=== PATIENT | female | born 1935 | race Caucasian/White ===

== ENCOUNTER 2019-04-22 08:41 | Inpatient (IN) | payer MEDICARE, OTHER ==
[~2019-04-22] VITALS: Ht 160 cm; Wt 70.3 kg
[2019-04-22 08:48] VITALS: BP 156/66
[2019-04-22] MEDS ORDERED: MICROZIDE12.5 MG PO (08:55)
[2019-04-22] MEDS ORDERED: CARVEDILOL6.25 M1 PO (08:56)
[2019-04-22] MEDS ORDERED: CRESTOR20 MG PO (08:57)
[2019-04-22] MEDS ORDERED: [UNRECOGNIZED DRUG - OTHER] (08:57)
[2019-04-22 09:21] LABS: INFLUENZA A ANTIGEN Negative (Negative)
[2019-04-22 09:28] LABS: ABSOLUTE EOSINOPHILS 0.1 thou/uL (0.0-0.7); ABSOLUTE LYMPHOCYTES 0.7 thou/uL (0.8-5.3); ABSOLUTE MONOCYTES 0.8 thou/uL (0.0-1.2); BASOPHILS 0.4 %; EOSINOPHILS 0.8 %; HEMATOCRIT 31.9 % (37.0-47.0); HEMOGLOBIN 11.4 gm/dL (12.0-15.0); LYMPHOCYTES 8.6 %; MCH 31.7 pg (26.0-34.0); MCHC 35.6 g/dL (28.0-37.0); MONOCYTES 10.8 %; MPV 7.1 fl. (7.2-11.1); NUCLEATED RBCS 0 /100WBC; PLATELET COUNT* 279 thou/uL (150-400); POLYS 79.4 %; RBC 3.59 mil/uL (4.20-5.00); RDW-CV 12.4 % (10.5-14.5); WBC 7.6 thou/uL (4.0-11.0)
[2019-04-22 09:42] LABS: APTT 36.2 Seconds (25.0-31.3); INR 1.1; PROTIME 10.9 Seconds (9.20-11.50)
[2019-04-22 09:48] LABS: CALCIUM 9.1 mg/dL (8.5-10.1); POTASSIUM 3.7 mmol/L (3.5-5.1)
[2019-04-22 09:52] LABS: ALBUMIN 3.3 g/dL (3.4-5.0); TOTAL BILIRUBIN 0.6 mg/dL (<0.1-1.0); TOTAL PROTEIN 7.9 g/dL (6.4-8.2)
[2019-04-22] MEDS ORDERED: ARIMIDEX1 MG PO (10:29)
[2019-04-22] MEDS ORDERED: FENOFIBRATE150 MG PO (10:29)
[2019-04-22] MEDS ORDERED: NORVASC 2.5 MG2.5 M1 PO (10:29)
[2019-04-22] MEDS ORDERED: VITAMIN B-121000 MC2 SUBLING (10:30)
[2019-04-22] MEDS ORDERED: OSTERA TABLET1 EAC1 PO (10:30)
[2019-04-22] MEDS ORDERED: VITAMIN E1000 UNIT PO (10:30)
[2019-04-22] MEDS ORDERED: OCUVITE ADULT1 EAC1 PO (10:30)
[2019-04-22 10:41] LABS: URINE BILIRUBIN NEGATIVE (Negative); URINE BLOOD TRACE (Negative); URINE CLARITY CLEAR; URINE COLOR YELLOW; URINE GLUCOSE-RANDOM NEGATIVE (Negative); URINE KETONES NEGATIVE (Negative); URINE LEUKOCYTES-REFLEX TRACE (Negative); URINE NITRITE-REFLEX NEGATIVE (Negative); URINE PROTEIN 1+ (Negative); URINE SPECIFIC GRAVITY 1.025 (1.005-1.030)
[2019-04-22 10:55] VITALS: BP 142/41
[2019-04-22 10:57] LABS: MUCUS 0-3 Light strn/LPF (None Seen)
[2019-04-22 10:58] LABS: CASTS None Seen /LPF (None Seen); CRYSTALS None Seen /LPF (None Seen)
[2019-04-22 10:59] LABS: URINE WBC-REFLEX 0-5 Rare /HPF (0-5)
[2019-04-22 11:00] LABS: BACTERIA-REFLEX 1-9 Few /HPF (None Seen)
[2019-04-22 11:02] LABS: SQUAMOUS 0-3 Few /LPF (0-3); URINE RBC 0-2 Rare /HPF (0-2)
[2019-04-22 11:29] VITALS: BP 121/56
--- NOTE | 2019-04-22 14:09 | NUR ---
ARRIVED TO UNIT ALERT AND ORIENTED X4. ISOLATION DROPLETT PRECAUTIONS IN PLACE. DENIES PAIN AT THIS TIME. HAS PRODUCTIVE COUGH. IVF AND IV ANTIBIODIC STARTED. ASSESSMENT CHARTED. PATIENT RESTING QUIETLY IN BED AT THIS TIME. ORIENTED TO ROOM AND CALL LIGHT. CALL LIGHT WITHIN REACH.
[2019-04-22 16:00] VITALS: BP 146/64
--- NOTE | 2019-04-22 18:32 | NUR ---
ALERT AND ORIENTED X4. UP WITH STAND BY ASSIST NEEDED. FLU VACCINE GIVEN. CONTINUES ON TAMIFLU. LAST TEMPATURE 98.5. CONTINUES ON IVF AND IV ANTIBIODICS WITH OUT ADVERSE REACTIONS. HAS PRODUCTIVE COUGH. REMAINS ON DROPLETT ISOLATION PRECAUTIONS AT THIS TIME. NO C/O N/V. CALL LIGHT WITHIN REACH.
[2019-04-22 20:00] VITALS: BP 145/62
[2019-04-23 04:17] LABS: ABSOLUTE EOSINOPHILS 0.1 thou/uL (0.0-0.7); ABSOLUTE LYMPHOCYTES 0.9 thou/uL (0.8-5.3); ABSOLUTE MONOCYTES 0.8 thou/uL (0.0-1.2); ABSOLUTE NEUTROPHILS 7.1 thou/uL (1.6-8.1); BASOPHILS 0.3 %; EOSINOPHILS 0.9 %; HEMATOCRIT 28.3 % (37.0-47.0); LYMPHOCYTES 10.6 %; MCH 31.9 pg (26.0-34.0); MCHC 35.3 g/dL (28.0-37.0); MCV 90.3 fL (80.0-100.0); MONOCYTES 8.5 %; MPV 7.4 fl. (7.2-11.1); NUCLEATED RBCS 0 /100WBC; PLATELET COUNT* 240 thou/uL (150-400); POLYS 79.7 %; RBC 3.13 mil/uL (4.20-5.00); RDW-CV 12.2 % (10.5-14.5); WBC 8.9 thou/uL (4.0-11.0)
[2019-04-23 04:25] LABS: CALCIUM 8.2 mg/dL (8.5-10.1); CREATININE 0.8 mg/dL (0.6-1.3); POTASSIUM 3.8 mmol/L (3.5-5.1)
--- NOTE | 2019-04-23 05:29 | NUR ---
ASSUMED CARES AT 1920. ALERT AND ORIENTED. PLEASANT. HOARSE WHISPER. COUGH. DROPLET ISOLATION. IV RIGHT AC WITH NS @ 100 CC/HR. SLEPT WELL. CALL LIGHT IN REACH.
[2019-04-23 08:19] VITALS: BP 152/71
--- NOTE | 2019-04-23 09:56 | EKG ---
[place] [address] ELECTROCARDIOGRAM REPORT Name: AVERY STORY Room: [address] ADM IN .R.#: [id number] Admission: 04/22/19 Attend Phys: Corwin Schwartz MD Discharge: Date of : 37 Report #: [id number] THIS REPORT FOR: //name// [facility] ED Test Date: 2019-04-22 Test Time: 09:12:50 Pat Name: AVERY STORY Department: Room: [facility] Gender: F Student Counselor: [facility] : 1935 Requested By: Hardeep Simms Order Number: [id number] MD: Javier Ramirez Measurements Intervals [place] Rate: 97 P: 60 NE: 223 QRS: -16 QRSD: 84 T: 55 QT: 339 QTc: 431 Interpretive Statements Sinus rhythm Prolonged NE interval Borderline left axis deviation No previous ECG available for comparison Electronically Signed On 04-23-2019 9:56:26 [employer]AX ACCOUNTING MANAGER by Javier Ramirez [email or web address] <ELECTRONICALLY SIGNED> By: Javier Ramirez MD, [facility] 04/23/19 0956 1 1 Javier Ramirez MD, FACC /EPI
[2019-04-23 16:00] VITALS: BP 153/36
--- NOTE | 2019-04-23 16:24 | NUR ---
ASSUMMED CARE OF PT AT 0730, PT ALERT AND ORIENTED, PT DENIES PAIN, PT AMBULATES TO BATHROOM TO VOID, IV PATENT AND INFUSING IN RIGHT AC, APETITE DECREASED BUT DOES EAT AND DRINK ADEQUATELY, PT HAS COUGH, NO SPUTUM NOTED, DROPLET PRECAUTIONS MAINTAINED, TEMP 100.1 AT 1600, PT REQUESTED TYLENOL GIVEN PER ORDER, ASSESSMENT COMPLETE, HOURLY ROUNDING COMPLETE, WILL CONTINUE TO MONITOR.
[2019-04-23 19:30] VITALS: BP 155/61
[2019-04-24 05:20] LABS: ABSOLUTE BASOPHILS 0.1 thou/uL (0.0-0.2); ABSOLUTE EOSINOPHILS 0.1 thou/uL (0.0-0.7); ABSOLUTE MONOCYTES 0.6 thou/uL (0.0-1.2); ABSOLUTE NEUTROPHILS 9.7 thou/uL (1.6-8.1); BASOPHILS 0.6 %; EOSINOPHILS 0.8 %; HEMATOCRIT 30.1 % (37.0-47.0); HEMOGLOBIN 10.5 gm/dL (12.0-15.0); LYMPHOCYTES 8.4 %; MCH 31.3 pg (26.0-34.0); MCHC 34.9 g/dL (28.0-37.0); MCV 89.8 fL (80.0-100.0); MONOCYTES 5.4 %; MPV 7.5 fl. (7.2-11.1); NUCLEATED RBCS 0 /100WBC; PLATELET COUNT* 290 thou/uL (150-400); POLYS 84.8 %; RBC 3.35 mil/uL (4.20-5.00); RDW-CV 12.5 % (10.5-14.5); WBC 11.4 thou/uL (4.0-11.0)
--- NOTE | 2019-04-24 05:33 | NUR ---
PT ALERT AND ORIENTED X4. VSS ON RA. MEDS GIVEN PER EMAR. PT SLEPT OFF AND ON THIS SHIFT. PT REPORTS MULTIPLE NOSE BLEED THIS SHIFT. SHE SAID SHE HAS NOSE BLEEDS EVERY ONCE IN A WHILE. BUT SHE BELIEVES LOVENOX MAY BE CONTRIBUTING TO IT THIS TIME. PT SAID SHE USES AFRIN NASAL SPRAY AT HOME FOR NASAL SPRAY. WILL PASS ON TO DAYSHIFT NURSE. PT ON DROPLET ISO FOR FLU B. CALL LIGHT WITHIN REACH. HOURLY ROUNDINGS MADE. WILL CONTINUE TO MONITOR.
[2019-04-24 05:36] LABS: CALCIUM 8.5 mg/dL (8.5-10.1); CREATININE 0.7 mg/dL (0.6-1.3); POTASSIUM 3.5 mmol/L (3.5-5.1)
[2019-04-24 08:00] VITALS: BP 155/65
--- NOTE | 2019-04-24 12:24 | NUR ---
ASSUMED CARE OF PATIENT AT 1200. REPORT RECEIVED FROM SKYLER BAKER. AGREE WITH PREVIOUS ASSESSMENT. PATIENT DENIES PAIN OR INCREASED SHORTNESS OF AIR. PATIENT SITTING ON SIDE OF BED. DENIES ANY NEEDS. REMAINS IN DROPLET PRECAUTIONS FOR FLU B. SPOKE WITH DR. MERINO REGARDING NOSE BLEEDS. CALL LIGHT WITHIN REACH. WILL CONTINUE WITH PLAN OF CARE.
[2019-04-24] MEDS ORDERED: TAMIFLU30 MG PO (14:01)
[2019-04-24] MEDS ORDERED: CEFDINIR300 MG PO (14:02)
[2019-04-24 14:25] VITALS: BP 155/65
--- NOTE | 2019-04-24 14:41 | NUR ---
PATIENT GIVEN DISCHARGE INSTRUCTIONS AND PRESCRIPTIONS AT THIS TIME. PATIENT VERBALIZED UNDERSTANDING REGARDING DC, FOLLOW UP APPOINTMENTS, AND NEW MEDICATIONS. PATIENT'S IV REMOVED. PATIENT ESCORTED OFF NURSING UNIT VIA WHEELHAIR WITH FAMILY. DISCHARGED TO HOME WITH ALL BELONGINGS.
== END 2019-04-24 14:41 | disposition home or self-care (01) | DRG 194 ==
LOC: M.ERS 08:41 → M.3W 10:27 → M.TBA-ER 10:27 → M.3W 11:07
PROVIDERS: Family Medicine; ADMIT Internal Medicine
DX: J10.1 Influenza due to other identified influenza virus with other respiratory manifestations (principal); R65.10 Systemic inflammatory response syndrome (SIRS) of non-infectious origin without acute organ dysfunction; E87.1 Hypo-osmolality and hyponatremia; E86.0 Dehydration; I10 Essential (primary) hypertension; Z72.89 Other problems related to lifestyle; Z79.899 Other long term (current) drug therapy; Z23 Encounter for immunization